=== PATIENT | male | born 1960 | race American Indian/Alaskan Native ===

== ENCOUNTER 2017-05-04 10:36 | Emergency (ER) | payer OTHER ==
[2017-05-04] MEDS ORDERED: NORCO 10/325 PO ONE (16:40)
[2017-05-04] MEDS ORDERED: MOTRIN PO ONE (16:41)
[2017-05-04] MEDS ORDERED: ZOFRAN ODT PO ONE (16:41)
--- NOTE | 2017-05-04 17:21 | Emergency Department Report ---
ED Back Pain/Injury HPI - General Chief Complaint: Back Pain/Injury Stated Complaint: BACK PAIN Time Seen by Provider: 05/04/17 16:02 Source: patient Limitations: No Limitations - History of Present Illness Initial Comments: 56-year-old male past medical history none presents with complaint of lower back pain radiating to right buttock. Denies any direct trauma to the spine and no recent falls no direct trauma. Patient denies hematuria increased urinary frequency or dysuria. Denies fevers chills nausea or vomiting. Patient is fully ambulatory without assistance. Denies saddle paresthesias denies bladder or bowel incontinence. States pain is slightly worse when he flexes his left leg. MD Complaint: back pain Onset/Timin -: days(s) Place: home, work Severity: moderate Severity scale (0 -10): 6 Quality: aching Consistency: intermittent Improves With: immobilization Worsens With: movement Context: while lifting, turning/twisting, bending - Related Data Previous Rx's Medication Instructions Recorded Last Taken Type Cyclobenzaprine [Flexeril] 10 mg PO TID PRN #12 tablet 05/04/17 Unknown Rx Naproxen 500 mg PO BID PRN #30 tablet 05/04/17 Unknown Rx Allergies Allergy/AdvReac Type Severity Reaction Status Date / Time No Known Allergies Allergy Unverified 05/04/17 11:07 ED Review of Systems ROS: Stated complaint: BACK PAIN Other details as noted in HPI Constitutional: denies: chills, fever Eyes: denies: eye pain, eye discharge, vision change ENT: denies: ear pain, throat pain Respiratory: denies: cough, shortness of breath, wheezing Cardiovascular: denies: chest pain, palpitations Endocrine: no symptoms reported Gastrointestinal: denies: abdominal pain, nausea, diarrhea Genitourinary: denies: urgency, dysuria Musculoskeletal: as per HPI, back pain. denies: joint swelling, arthralgia Skin: denies: rash, lesions Neurological: denies: headache, weakness, paresthesias Psychiatric: denies: anxiety, depression Hematological/Lymphatic: denies: easy bleeding, easy bruising ED Past Medical Hx - Past Medical History Previous Medical History?: No - Surgical History Past Surgical History?: No - Social History Smoking Status: Current Every Day Smoker Substance Use Type: None - Medications Home Medications: Home Medications Medication Instructions Recorded Confirmed Last Taken Type Cyclobenzaprine [Flexeril] 10 mg PO TID PRN #12 tablet 05/04/17 Unknown Rx Naproxen 500 mg PO BID PRN #30 tablet 05/04/17 Unknown Rx ED Physical Exam - General Limitations: No Limitations General appearance: alert, in no apparent distress - Head Head exam: Present: atraumatic, normocephalic - Eye Eye exam: Present: normal appearance, PERRL, EOMI - ENT ENT exam: Present: mucous membranes moist - Neck Neck exam: Present: normal inspection, full ROM - Respiratory Respiratory exam: Present: normal lung sounds bilaterally. Absent: respiratory distress - Cardiovascular Cardiovascular Exam: Present: regular rate, normal rhythm. Absent: systolic murmur, diastolic murmur, rubs, gallop - GI/Abdominal GI/Abdominal exam: Present: soft, normal bowel sounds - Rectal Rectal exam: Present: deferred - Extremities Exam Extremities exam: Present: normal inspection - Back Exam Back exam: Present: normal inspection - Expanded Back Exam Expanded Back exam: Positive Straight Leg Raise: Left (30 degrees) - Neurological Exam Neurological exam: Present: alert, oriented X3, CN II-XII intact, normal gait - Psychiatric Psychiatric exam: Present: normal affect, normal mood - Skin Skin exam: Present: warm, dry, intact, normal color. Absent: rash ED Course Vital Signs 05/04/17 11:07 Temperature 98.4 F Pulse Rate 63 Respiratory 20 Rate Blood Pressure 99/45 O2 Sat by Pulse 100 Oximetry ED Medical Decision Making - Medical Decision Making A/P: Musculoskeletal lower back pain, left-sided sciatic 1-naproxen when necessary, Flexeril when necessary 2-follow up with primary care and orthopedics 3-patient has no clinical signs of cauda equina strength 5 out of 5 bilateral lower extremities deep tendon reflexes intact bilaterally knee jerk and ankle reflexes. No saddle paresthesias no bladder or bowel incontinence. Patient is ambulatory without assistance. Critical care attestation.: If time is entered above; I have spent that time in minutes in the direct care of this critically ill patient, excluding procedure time. ED Disposition Clinical Impression: Sciatica of left side Lower back pain Qualifiers: Chronicity: acute Back pain laterality: left Sciatica presence: with sciatica Sciatica laterality: sciatica of left side Qualified Code(s): M54.42 - Lumbago with sciatica, left side Disposition: TO HOME OR SELFCARE Is pt being admited?: No Does the pt Need Aspirin: No Condition: Stable Instructions: Sciatica (ED), Acute Low Back Pain (ED), Back Pain (ED) Prescriptions: Cyclobenzaprine [Flexeril] 10 mg PO TID PRN #12 tablet PRN Reason: Muscle Spasm Naproxen 500 mg PO BID PRN #30 tablet PRN Reason: Pain Referrals: [facility] [Outside] - 3-[address] [facility] [Outside] - 3-5 Days [facility] [Provider Group] - 3-5 Days Time of Disposition: 17:31
[2017-05-04 17:43] VITALS: BP 110/72
--- NOTE | 2017-05-04 18:09 | XRay Report ---
FINAL REPORT EXAM: XR SPINE LUMBOSACRAL 2-3V HISTORY: lower back pain TECHNIQUE: AP, lateral and coned-down views of the lumbar spine PRIORS: None. FINDINGS: The vertebral body heights are well maintained. Moderate disc space narrowing L5-S1 is seen. Mild narrowing at L4-L5. The alignment is normal. No evidence for spondylolysis or spondylolisthesis is seen. Pedicles are intact bilaterally at all levels. The paraspinal soft tissues demonstrate punctate rounded calcifications overlying both upper renal shadows consistent with possible renal calculi. IMPRESSION: 1. No acute bony abnormality 2. Disc space narrowing at L4-L5 and L5-S1. 3. Calcifications overlying both renal shadow suspicious for possible bilateral renal calculi.
== END 2017-05-04 17:45 | disposition home or self-care (01) ==
LOC: EDBD → ED 10:36
DX: M54.42 Lumbago with sciatica, left side (principal); F17.200 Nicotine dependence, unspecified, uncomplicated
CPT/HCPCS: 72100; 99283; Q0162